=== PATIENT | female | born 1970 | race Asian ===

== ENCOUNTER 2017-05-29 21:29 | Emergency (ER) | payer OTHER ==
[~2017-05-29] VITALS: Ht 154.9 cm; Wt 56.7 kg
[2017-05-29] MEDS ORDERED: MOTRIN200 MG PO (22:08)
[2017-05-29] MEDS ORDERED: PREDNISONE20 MG PO (22:08)
[2017-05-30 00:03] LABS: INR 0.97; PROTHROMBIN TIME 12.1 seconds (11.9-14.5)
[2017-05-30 00:04] LABS: PARTIAL THROMBOPLASTIN TIME 30.3 seconds (23.8-35.5)
[2017-05-30 00:09] LABS: BASOPHILS % 0.5 % (0.0-1.0); EOSINOPHILS # (AUTO) 0.1 (0.0-0.4); EOSINOPHILS % 0.8 % (0.0-6.0); HEMATOCRIT 35.8 % (34.2-44.1); HEMOGLOBIN 11.4 g/dL (12.0-16.0); LYMPHOCYTES # (AUTO) 1.4 (1.0-3.2); LYMPHOCYTES % 18.2 % (18.0-39.1); MEAN CORPUSCULAR HEMOGLOBIN 29.3 pg (28-32); MEAN CORPUSCULAR HGB CONC 31.8 g/dL (31-35); MONOCYTES # (AUTO) 0.6 (0.2-0.8); MONOCYTES % 8.2 % (4.4-11.3); NEUTROPHILS # (AUTO) 5.6 (2.1-6.9); NEUTROPHILS % 71.9 % (38.7-80.0); PLATELET COUNT 383 x10e3/uL (140-360); RED BLOOD COUNT 3.89 x10e6/uL (3.6-5.1); RED CELL DISTRIBUTION WIDTH 11.9 % (11.7-14.4)
[2017-05-30 00:13] LABS: ALANINE AMINOTRANSFERASE 34 IU/L (0-55); ALBUMIN 3.8 g/dL (3.5-5.0); ALBUMIN/GLOBULIN RATIO 0.9 (0.8-2.0); ALKALINE PHOSPHATASE 65 IU/L (40-150); ANION GAP 10.5 mmol/L (8-16); BLOOD UREA NITROGEN 9 mg/dL (7-26); BUN/CREATININE RATIO 13 (6-25); CALCIUM 9.3 mg/dL (8.4-10.2); CARBON DIOXIDE 30 mmol/L (22-29); CHLORIDE 102 mmol/L (98-107); CREATINE KINASE 65 IU/L (29-168); CREATININE, SERUM 0.69 mg/dL (0.57-1.11); EST GLOMERULAR FILTRATION RATE > 60 ML/MIN (60-); GLUCOSE 114 mg/dL (74-118); MAGNESIUM 1.9 MG/DL (1.3-2.1); POTASSIUM 3.5 mmol/L (3.5-5.1); SODIUM 139 mmol/L (136-145)
[2017-05-30 00:16] LABS: BILIRUBIN,URINE NEGATIVE (NEGATIVE); CLARITY,URINE CLEAR (CLEAR); COLOR,URINE YELLOW (YELLOW); KETONES,URINE NEGATIVE (NEGATIVE); LEUKOCYTE ESTERASE ,URINE NEGATIVE (NEGATIVE); NITRITE,URINE NEGATIVE (NEGATIVE); PROTEIN,URINE DIPSTICK NEGATIVE (NEGATIVE); URINE UROBILINOGEN 0.2 mg/dL (0.2 - 1)
[2017-05-30 00:23] LABS: B-TYPE NATRIURETIC PEPTIDE2 20.7 pg/mL (0-100)
[2017-05-30 00:28] LABS: INFLUENZAE A&B ANTIGEN (RAPID) NEGATIVE (NEGATIVE); STREPTOCOCCUS GRP A ANTIGEN NEGATIVE (NEGATIVE)
[2017-05-30 00:33] LABS: BACTERIA,URINE FEW /HPF; EPITHELIAL CELLS,URINE FEW /LPF; RBC,URINE 0-5 /HPF (0-5)
[2017-05-30 00:33] LABS: THYROID STIMULATING HORMONE 1.404 uIU/mL (0.350-4.940)
--- NOTE | 2017-05-30 00:55 | Diagnostic Imaging Report ---
CHEST 2 VIEWS, Technique: CHEST 2 VIEWS Comparison: None Clinical history: Lower extremity edema DISCUSSION: Normal appearance of the heart, mediastinum, lungs and pleural spaces. IMPRESSION: No acute abnormality Signed by: Dr Mila Suarez MD on 05/30/2017 12:51 AM
[2017-05-30 00:56] LABS: ERYTHROCYTE SEDIMENTATION RATE 67 mm/hr (0-20)
[2017-05-30] MEDS ORDERED: HYDROCODONE/APAP 7.5MG-325MG 1 EA TAB PO STA (01:25)
--- NOTE | 2017-05-30 10:28 | Cardiology Report ---
DATE OF STUDY: May 29, 2017 DOPPLER SCAN OF LOWER EXTREMITY VEINS The lower extremity veins were interrogated using the duplex scanning method. The veins were compressible. There was no definite deep venous thrombosis. CONCLUSION: No definite deep venous thrombosis involving the lower extremity veins bilaterally. Job#: [id number] cc:DEBBY YORK MD
== END 2017-05-30 03:02 | disposition home or self-care (01) ==
LOC: ER 21:29
DX: L52 Erythema nodosum (principal); R60.9 Edema, unspecified
CPT/HCPCS: 36415; 71046; 80053; 81001; 81025; 82550; 82553; 83518; 83605; 83735; 83880; 84443; 84484; 85025; 85610; 85651; 85730; 87040; 87070; 87086; 87400; 93005; 93970; 99284